=== PATIENT | female | born 1960 | race Caucasian/White ===

== ENCOUNTER → 2016-07-25 | Outpatient (CLI) | payer BC ==
[~2016-07-25] MED LIST: ALLERGY SHOT IM; ASPIRIN325 M1 PO; ASTELIN137 MCG INH; CLINORIL200 M1 PO; COUMADIN PO; COUMADIN7.5 MG PO; DEXTROSTAT PO; EFFEXOR XR; EFFEXOR XR PO; HYDROCODON-ACE1 EAC7 PO; KETOPROFEN PO; LIPITOR PO; LORTAB 10-5001 EACH PO; METHYLPHENIDATE36 M1 PO; METHYLPHENIDATE54 M1 PO; MICROGESTIN FE1 EACH PO; NAVANE5 MG PO; OSTEO BI-FLEX1 EACH PO; PANTOPRAZOLE SO40 MG PO; PREVACID; PRILOSEC20 M1 PO; SINGULAIR PO; VENLAFAXINE HC150 M1 PO; VENLAFAXINE HC225 MG PO; VIT B-12 PO; ZOCOR PO
--- NOTE | ~2016-07-25 | MY11 ---
[facility] A Service of [facility] RADIOLOGY TEXT RESULTS PATIENT: LOLY REYES LOCATION: [facility] : 64 UNIT #: [id number] AGE: [address]: Sruthi Tang APRN SEX: F ORDER DR: [id number] [facility] [address] [place], [place] [address] [id number] O MR#: [id number] Acc #: [id number] NAME: LOLY REYES : 1960 SEX: F STUDY DATE/TIME: 07/25/2016 14:28 UNIT: [facility] ROOM: STUDY DESCRIPTION: MY Mammogram Screening [facility] Attending Physician: Sruthi Tang A.P.R.N. Ordering Physician: Sruthi Tang A.P.R.N. Primary Care Physician: Sruthi Tang A.P.R.N. MEDICAL IMAGING REPORT This report is preliminary unless electronic signature is present EXAM Digital screening mammogram 07/25/2016 HISTORY 55-year-old woman, positive family history, aunt age 55. Previous left breast biopsy for a cyst. Annual screen. COMPARISON STUDIES Mammograms date to 04/11/2005 with most recent screening comparison 04/03/2015. Followup diagnostic right mammogram 05/10/2015. FINDINGS Digital imaging of each breast was completed utilizing screening protocol. Review includes FDA-approved CAD device. Breast parenchyma remains moderately dense with residual parenchymal opacities bilaterally. Small focal opacity middle third inferior right breast is again noted and unchanged. There is no interval occurring mass. There are no suspicious microcalcifications and no suspicious architectural disturbance. Subareolar duct prominence appears stable bilaterally. IMPRESSION Stable benign mammogram. Annual screening recommended. BIRADS II Patients over the age of 40 are entered into a reminder system with target due date for the next mammogram. A result letter will also be sent to the patient. BIRADS: 2 - Benign finding Dictated by... Abdoulaye Steele M.D. [facility] A Service [facility] RADIOLOGY TEXT RESULTS PATIENT: LOLY REYES LOCATION: [facility] : 64 UNIT #: [id number] AGE: [address]: Sruthi Tang APRN SEX: F ORDER DR: THIS IS AN ELECTRONICALLY VERIFIED REPORT Abdoulaye Steele M.D. at 07/25/2016 3:59 PM Tra TD: 07/25/2016 15:36 JOB #: [id number] MEDICAL IMAGING REPORT Page 1 of 1 COPY
== END | disposition home or self-care (01) ==
LOC: CWCC 13:50
DX: Z12.31 Encounter for screening mammogram for malignant neoplasm of breast (principal); Z80.3 Family history of malignant neoplasm of breast
CPT/HCPCS: G0202